=== PATIENT | female | born 1950 | race American Indian/Alaskan Native ===

== ENCOUNTER → 2019-04-21 | Outpatient (CLI) | payer MEDICARE, OTHER ==
[~2019-04-21] MED LIST: ASPI81CH; CYAN500 PO; ERGO50000 PO; FISH OIL 1,0001 EAC1 PO; GABA300 PO; META800 PO; METO25ER PO; PANT40 PO; Percocet 5-3251 EACH PO; VALA500 PO; XARELTO20 MG PO
[2019-04-22 13:57] LABS: Stool Occult Bld Immuno 1 Negative (NEGATIVE)
== END | disposition home or self-care (01) ==
LOC: LAB SHORT 09:29 → LAB 09:29 → LAB FUT 01-21 09:05 → EDSTATUS 01-21 09:05
PROVIDERS: Family Medicine
DX: Z12.11 Encounter for screening for malignant neoplasm of colon (principal)
CPT/HCPCS: G0328

== ENCOUNTER 2021-07-31 07:24 | Day surgery (SDC) | payer MEDICARE, OTHER ==
[~2021-07-31 07:24] MED LIST changes: +Amiodarone HCl200 MG PO; +ELIQUIS5 M2 PO; +OXYCODONE HCL E PO; +SPIR25 PO; +TORSE20 PO
--- NOTE | 2021-07-31 09:30 | NUR ---
PT VERBALIZED UNDERSTANDING OF WRITTEN AND VERBAL D/C INST. SR/SB 55-60 BPM ON D/C. IV REMOVED. PT TAKEN OUT OF THE HRT CENTER VIA W/C.
== END 2021-08-02 03:03 | disposition home or self-care (01) ==
LOC: MHTC 07:24
DX: I48.19 Other persistent atrial fibrillation (principal); R06.02 Shortness of breath; I13.0 Hypertensive heart and chronic kidney disease with heart failure and stage 1 through stage 4 chronic kidney disease, or unspecified chronic kidney disease; I50.9 Heart failure, unspecified; N18.9 Chronic kidney disease, unspecified; I07.1 Rheumatic tricuspid insufficiency; Z88.8 Allergy status to other drugs, medicaments and biological substances; Z79.01 Long term (current) use of anticoagulants; Z86.16 Personal history of COVID-19
CPT/HCPCS: 92960; 93005; 93010; J0282; J2704; J7030

== ENCOUNTER → 2022-01-15 | Outpatient (CLI) | payer MEDICARE, OTHER | LOC: PLD 07:19 → LAB SHORT 07:19 | DX: K13.21 Leukoplakia of oral mucosa, including tongue (principal) | CPT/HCPCS: 88305; 88312 ==

== ENCOUNTER → 2022-11-05 | Outpatient (CLI) | payer MEDICARE, OTHER ==
[2022-11-05 16:35] LABS: Appearance, Urine Clear (Clear); Bilirubin, Urine Neg (Neg); Blood, Urine 2+ (Neg); Glucose Qualitative, Urine Neg (Neg); Ketones, Urine Neg (Neg); Leukocyte Esterase, Urine Neg (Neg); Nitrite, Urine Neg (Neg); Protein, Urine Neg (Neg); Specific Gravity, Urine 1.015 (1.003-1.022); Urobilinogen, Urine NORM (Normal)
[2022-11-05 16:48] LABS: Color, Urine Pale Yellow (P-Yellow)
[2022-11-05 16:50] LABS: Red Blood Cells, Urine 0-2 /hpf (0-2); White Blood Cells, Urine 0-2 /hpf (0-5)
[2022-11-05 16:51] LABS: Bacteria Few /hpf; Squamous Epithelial Cells Not Seen /hpf (Few)
== END ==
LOC: LAB 10:00 → LAB SHORT 10:00
PROVIDERS: Nurse Practitioner Family
DX: N39.0 Urinary tract infection, site not specified (principal)
CPT/HCPCS: 81001; 87086

== ENCOUNTER 2025-03-16 05:59 | Day surgery (SDC) | payer MEDICARE, OTHER ==
[~2025-03-16] VITALS: Ht 154.9 cm; Wt 111.0 kg
[~2025-03-16 05:59] MED LIST changes: +ALLO100 PO; -METO25ER PO; +METO50ER PO
[2025-03-16 06:48] VITALS: BP 115/76
--- NOTE | 2025-03-16 07:10 | NUR ---
History, Chart, Medications and Allergies reviewed before start of procedure. Pre-Op teaching done. Pt verbalizes understanding. Patient confirms NPO status and agrees with scheduled surgery. Patient states colon prep results yellow, cloudy. Patient States Post-Procedure ride home has been arranged.
--- NOTE | 2025-03-16 07:11 | NUR ---
03/16/[address] SEE ANESTHESIA RECORDS. [facility]: PINK, [phone].
[2025-03-16] MEDS ORDERED: Phenylephrine HCl 100 MCG/ML-NS 10MLSYR (1MG/10ML) ONE (07:16)
[2025-03-16 08:00] VITALS: BP 103/75
[2025-03-16 08:15] VITALS: BP 115/83
--- NOTE | 2025-03-16 08:24 | NUR ---
Patient up to Ambulate independently. Gait steady. Discharge instructions reviewed with patient. Patient verbalizes understanding. Copy given to patient to take home. Patient States Post-Procedure ride home has been arranged. Discharged via wheelchair to private car for ride home. PT TOLERATING PO, REPORTS READY TO GO HOME.
== END 2025-03-16 08:24 | disposition home or self-care (01) ==
LOC: ORSCMMR 05:59 → ORD 07:30 → ORSCMMR 07:30
PROVIDERS: Surgery
PROC: 0DBL8ZX Excision of Transverse Colon, Via Natural or Artificial Opening Endoscopic, Diagnostic (ICD-10-PCS; principal; 2025-03-16 07:30)
PROC: 0DBP8ZX Excision of Rectum, Via Natural or Artificial Opening Endoscopic, Diagnostic (ICD-10-PCS; principal; 2025-03-16 07:30)
DX: Z12.11 Encounter for screening for malignant neoplasm of colon (principal); R19.5 Other fecal abnormalities; D12.3 Benign neoplasm of transverse colon; K62.1 Rectal polyp; K57.30 Diverticulosis of large intestine without perforation or abscess without bleeding; I48.91 Unspecified atrial fibrillation; I50.9 Heart failure, unspecified; I12.9 Hypertensive chronic kidney disease with stage 1 through stage 4 chronic kidney disease, or unspecified chronic kidney disease; N18.9 Chronic kidney disease, unspecified; Z85.818 Personal history of malignant neoplasm of other sites of lip, oral cavity, and pharynx; E66.9 Obesity, unspecified; Z68.42 Body mass index [BMI] 45.0-49.9, adult; Z79.01 Long term (current) use of anticoagulants; Z79.899 Other long term (current) drug therapy; Z87.891 Personal history of nicotine dependence
CPT/HCPCS: 88305; J2371; J2704; J7120

== ENCOUNTER → 2025-06-09 | Outpatient (CLI) | payer MEDICARE, OTHER ==
[2025-06-09 11:53] LABS: Source, Urine Clean Catch
[2025-06-09 12:05] LABS: Bilirubin, Urine Neg (Neg); Color, Urine Pale Yellow (P-Yellow); Glucose Qualitative, Urine Neg (Normal); Ketones, Urine Neg (Neg); Leukocyte Esterase, Urine Neg (Neg); Protein, Urine Neg (Neg); Specific Gravity, Urine 1.005 (1.003-1.022); Urobilinogen, Urine NORM (Normal); White Blood Cells, Urine Not Seen /hpf (0-5)
== END ==
LOC: LAB SHORT 10:45 → LAB 10:45
PROVIDERS: Physician Assistant
DX: Z01.812 Encounter for preprocedural laboratory examination (principal); I36.1 Nonrheumatic tricuspid (valve) insufficiency; Z01.818 Encounter for other preprocedural examination; I50.89 Other heart failure
CPT/HCPCS: 81001